=== PATIENT | female | born 1985 | race Caucasian/White ===

== ENCOUNTER 2018-03-03 21:33 | Emergency (ER) | payer MEDICAID ==
[2018-03-03 22:09] LABS: URINE APPEARANCE CLEAR; URINE BILIRUBIN NEGATIVE (NEGATIVE); URINE BLOOD NEGATIVE (NEGATIVE); URINE COLOR YELLOW; URINE GLUCOSE (UA) NEGATIVE (NEGATIVE); URINE KETONE NEGATIVE (NEGATIVE); URINE LEUKOCYTE ESTERASE NEGATIVE (NEGATIVE); URINE NITRITE NEGATIVE (NEGATIVE); URINE PROTEIN NEGATIVE (NEGATIVE); URINE UROBILINOGEN 0.2 E.U./dL (0.20 - 1.00)
[2018-03-03 22:10] LABS: HCG,QUALITATIVE URINE POSITIVE (NEGATIVE)
--- NOTE | 2018-03-03 22:35 | Emergency Department Record ---
History of Present Illness - General Chief Complaint: Back Pain/Injury Stated Complaint: BACK PAIN Time Seen by Provider: 03/03/18 22:00 Source: Patient Mode of Arrival: Ambulatory Limitations: No limitations - History of Present Illness Initial Comments: The patient is here due to R lower back pain that radiates around the the RLQ of the abdomen. The pain has progressively worsened over the last 2 weeks. There is no radiation of pain down the legs and no leg numbness, weakness, or bowel or bladder incontinence. She denies any trauma, injury or fevers and the pain is worse with certain movements. She is also having some RLQ pain and just found out she was about 6 weeks by dates. She has had no vaginal bleeding. MD Complaint: Back pain Onset/Timin -: Week(s) Radiation: Abdomen Severity scale (1-10): 6 Quality: Aching, Burning Consistency: Constant, Getting worse Improves With: Supine Worsens With: Movement, Walking Context: Unknown Associated Symptoms: Abdominal pain Treatments Prior to Arrival: Cold therapy, Heat therapy Treatment Prior to Arrival Comment:: massage therapy - Related Data Home Medications Medication Instructions Recorded Confirmed Last Taken No Home Med [NO HOME MEDS] 03/03/18 03/03/18 Unknown Allergies Allergy/AdvReac Type Severity Reaction Status Date / Time No Known Drug Allergies Allergy Verified 03/03/18 21:51 Travel Screening - Travel/Exposure Within Last 30 Days Have you traveled within the last 30 days?: No - Travel Symptoms Symptom Screening: None Review of Systems Constitutional: Denies: Chills, Fever Past Medical History - SOCIAL HISTORY Smoking Status: Current every day smoker Alcohol Use: None Drug Use: None - RESPIRATORY Hx Respiratory Disorders: No - CARDIOVASCULAR Hx Cardio Disorders: No - NEURO Hx Neuro Disorders: No - GI Hx GI Disorders: No - Hx Genitourinary Disorders: No - ENDOCRINE Hx Endocrine Disorders: No - MUSCULOSKELETAL Hx Musculoskeletal Disorders: No - PSYCH Hx Psych Problems: No - HEMATOLOGY/ONCOLOGY Hx Hematology/Oncology Disorders: No Family Medical History Any Significant Family History?: Yes Hx HTN: Father Physical Exam - General General Appearance: Alert, Oriented x3, Cooperative, No acute distress - Head Head exam: Atraumatic, Normocephalic, Normal inspection - Eye Eye exam: Normal appearance, PERRL, EOMI - Neck Neck exam: Normal inspection, Full ROM. negative: Tenderness - Respiratory Respiratory exam: Normal lung sounds bilaterally. negative: Respiratory distress - Cardiovascular Cardiovascular Exam: Regular rate, Normal rhythm, Normal heart sounds - GI/Abdominal GI/Abdominal exam: Soft, Normal bowel sounds, Tenderness (There is mild RLQ tenderness.). negative: Rebound, Rigid - Extremities Extremities exam: Normal inspection, Full ROM, Normal capillary refill. negative: Tenderness - Back Back exam: Reports: Normal inspection, Muscle spasm. Denies: CVA tenderness (R) , CVA tenderness (L), Paraspinal tenderness, Vertebral tenderness - Neurological Neurological exam: Alert, Normal gait, Oriented X3, Reflexes normal, Other (Neg SLR bilaterally.). negative: Abnormal gait, Motor sensory deficit Course Vital Signs 03/03/18 22:05 Temperature 98.4 F Pulse Rate [ 84 Pulse Ox Probe] Respiratory 16 Rate Blood Pressure 139/69 [Left Arm] Pulse Ox 100 Medical Decision Making - Lab Data Result diagrams: 03/03/18 22:39 03/03/18 22:39 Lab Results 03/03/18 Range/Units 22:08 Urine Color Yellow Urine Appearance Clear Urine pH 6.5 (5.0-8.0) Ur Specific Blanca 1.025 (1.002-1.030) Urine Protein Negative (NEGATIVE) Urine Glucose (UA) Negative (NEGATIVE) Urine Ketones Negative (NEGATIVE) Urine Blood Negative (NEGATIVE) Urine Nitrite Negative (NEGATIVE) Urine Bilirubin Negative (NEGATIVE) Urine Urobilinogen 0.2 (0.20 - 1.00) E.U./dL Ur Leukocyte Esterase Negative (NEGATIVE) Urine HCG, Qual Positive H (NEGATIVE) Disposition Disposition: Transfer Clinical Impression: Acute flank pain Disposition: Acute Care Hospital Transfer Transfer To: [facility] Reason For Transfer: [place] Accepting Physician: Fariha Time Discussed w/Accepting Physician: 23:11 Condition: (2) Stable Instructions: Abdominal Pain (ED) Forms: Patient Portal Access Time of Disposition: 23:11 Quality - Quality Measures Quality Measures: N/A - Blood Pressure Screening View Details: Yes Does Patient Have Any of the Following: No Blood Pressure Classification: Pre-Hypertensive BP Reading Systolic Measurement: 124 Diastolic Measurement: 79 Screening for High Blood Pressure: < Pre-Hypertensive BP, F/U Documented > [ [id number]] Pre-Hypertensive Follow-up Interventions: Referral to alternative/primary care provider.
[2018-03-03] MEDS ORDERED: ACETAMINOPHEN 325 MG TAB PO ONE (22:39)
[2018-03-03 22:48] LABS: BASO % 0.4 % (0-6); EOS % 2.9 % (0-6); HEMATOCRIT 35.1 % (35.0-47.0); HEMOGLOBIN 11.9 gm/dl (11.6-16.0); LYMPH % 44.4 % (16-45); MEAN CELL VOLUME 90.5 fl (81-97); MEAN CORPUSCULAR HEMOGLOBIN 30.7 pg (27-33); MEAN CORPUSCULAR HGB CONC 33.9 g/dl (32-36); MEAN PLATELET VOLUME 9.2 fl (7.4-10.4); MONO % 9.3 % (0-9); PLATELET COUNT 311 K/uL (130-400); RED BLOOD COUNT 3.88 M/uL (3.80-5.40); WHITE BLOOD COUNT W/O DIFF 8.2 K/uL (4.2-12.2)
[2018-03-03 23:09] LABS: BLOOD UREA NITROGEN 13 mg/dL (6-20); CREATININE 0.4 mg/dL (0.5-0.9); EST GLOMERULAR FILTRATION RATE > 60 mL/min
[2018-03-03 23:10] LABS: TOTAL B-hCG > 10000 mIU/mL; TOTAL PROTEIN 6.6 g/dL (6.6-8.7)
[2018-03-03 23:12] LABS: GLUCOSE,RANDOM 99 mg/dL (74-109)
[2018-03-03 23:14] LABS: ALBUMIN 3.9 g/dL (4.0-5.0); ALKALINE PHOSPHATASE 63 U/L (35-104); ALT/SGPT 31 U/L (<33); AST/SGOT 27 U/L (10.0-35.0); BILIRUBIN,DIRECT < 0.2 mg/dL (0-0.3)
== END 2018-03-03 23:25 | disposition short-term general hospital (02) ==
LOC: ER 21:33
DX: O99.89 Other specified diseases and conditions complicating pregnancy, childbirth and the puerperium (principal); O99.331 Smoking (tobacco) complicating pregnancy, first trimester; R10.31 Right lower quadrant pain; M54.5 Low back pain; F17.210 Nicotine dependence, cigarettes, uncomplicated; Z3A.01 Less than 8 weeks gestation of pregnancy
CPT/HCPCS: 80048; 80076; 81003; 81025; 84702; 85025; 99284